=== PATIENT | female | born 1960 | race African-American/Black ===

== ENCOUNTER 2022-02-07 08:40 | Emergency (ER) | payer MEDICARE, BC ==
[~2022-02-07] VITALS: Ht 165.1 cm; Wt 70.3 kg
[2022-02-07 08:43] VITALS: BP 174/96
--- NOTE | 2022-02-07 08:55 | NUR ---
Dr. Andres is evaluating patient at bedside
[2022-02-07] MEDS ORDERED: MORPHINE SULFATE 4 MG/ML SYR IM ONE (09:05)
--- NOTE | 2022-02-07 09:16 | NUR ---
61/F BIB WITH C/O COUGHING UP BLOOD AND THROAT PAIN. PATIENT STATES SHE HAD AN EGD YESTERDAY AND TODAY WOKE UP FEELING "LIKE SHE CANNOT CLEAR HER THROAT." REPORTS FEELING SOB. PATIENT STATES "SWALLOWING OR TALKING MAKES ME NEED TO CLEAR MY THROAT. IT CHOKES ME." SPO2 100% ON ROOM AIR. STATES GABAPENTIN PRIOR TO ARRIVAL. BED LOCKED IN LOWEST POSITION, SIDE RAILS X 1. SPOUSE AT BEDSIDE. PT STATES 7/10, DULL/CONSTANT, NON-RADIATING THROAT PAIN. MEDHX: HTN, PACEMAKER, ASTHMA ALLERGIES: NKA
--- NOTE | 2022-02-07 09:16 | NUR ---
Dr. Andres is reevaluating patient at bedside
[2022-02-07] MEDS ORDERED: AMOX250P30 PO (09:23)
[2022-02-07] MEDS ORDERED: SUCR1ORA4 PO (09:23)
--- NOTE | 2022-02-07 09:58 | NUR ---
Patient discharged with v/s stable. Written and verbal after care instructions given and explained for Sore Throat. Patient alert, oriented and verbalized understanding of instructions. Wheel Chair Assisted by spouse. All questions addressed prior to discharge. ID band removed. Patient advised to follow up with PMD. Rx of Sucralfate, Amoxicillin given. Patient educated on indication of medication including possible reaction and side effects. Opportunity to ask questions provided and answered.
== END 2022-02-07 09:58 | disposition home or self-care (01) ==
LOC: MED 08:40
DX: J02.9 Acute pharyngitis, unspecified (principal); J45.909 Unspecified asthma, uncomplicated; I10 Essential (primary) hypertension; Z79.899 Other long term (current) drug therapy; Z98.890 Other specified postprocedural states
CPT/HCPCS: 96372; 99283; J2270